=== PATIENT | male | born 1970 | race Caucasian/White ===

== ENCOUNTER 2019-05-29 18:38 | Emergency (ER) | payer OTHER, SELFPAY ==
--- NOTE | ~2019-05-29 | XR_ITS ---
EXAMINATION: XR chest 2V DATE: 05/29/2019 19:48 INDICATION: Shortness of breath TECHNIQUE: PA and lateral views of the chest were obtained. COMPARISON: None FINDINGS: The lungs are clear with no focal airspace opacities, pulmonary edema, pleural effusion or pneumothor ax. The cardiomediastinal silhouette is normal. Visualized bones and soft tissues are unremarkable. IMPRESSION: 1. No acute cardiopulmonary disease. Reviewed, dictated and finalized at location A. CAL RESEARCH ASSISTANT
[2019-05-29 18:45] VITALS: BP 142/89; PULSE 92; RESP 24; TEMP 38.6; O2SAT 95
--- NOTE | 2019-05-29 18:45 | ECG_ITS ---
Measurements Intervals [place] Rate: 86 P: 48 CO: 143 QRS: 18 QRSD: 90 T: 53 QT: 322 QTc: 385 Interpretive Statements SINUS RHYTHM BASELINE ARTIFACT- I, II, III, AVR, AVL, AVF, V1-V3 BORDERLINE ECG Electronically Signed On 05-30-2019 7:56:10 RESILIENT TILE INSTALLER by Mingo Hoang D.O.
[2019-05-29] MEDS: ASPIRIN 81 MG CHEWABLE TABLET 324 MG PO (18:58)
[2019-05-29 19:05] LABS: Basophils Absolute Auto 0.01 K/mm3 (0.00-0.10); Basophils Percent Auto 0.2 % (0.0-1.0); Eosinophils Absolute Auto 0.02 K/mm3 (0.02-0.50); Eosinophils Percent Auto 0.4 % (1.0-6.0); Hematocrit 39.6 % (40.0-54.0); Hemoglobin 12.8 g/dL (14.0-18.0); Immature Granulocyte Absolute 0.02 K/mm3 (0.00-0.00); Immature Granulocyte Percent A 0.4 % (0.0-0.0); Lymphocytes Percent Auto 10.9 % (18.0-42.0); Mean Corpuscular HGB Conc 32.3 g/dL (32.0-36.0); Mean Corpuscular Volume 86.7 fL (78.0-102.0); Mean Platelet Volume 9.8 fl (8.7-11.0); Monocytes Absolute Auto 0.64 K/mm3 (0.10-0.90); Monocytes Percent Auto 13.9 % (2.0-11.0); Neutrophils Absolute Auto 3.4 K/mm3 (1.7-7.2); Neutrophils Percent Auto 74.2 % (50.0-70.0); Platelet Count Result 204 K/mm3 (150-420); Red Blood Count 4.57 M/mm3 (4.70-6.10); Red Cell Distribution Width 12.8 % (11.6-14.4); White Blood Count 4.6 K/mm3 (4.8-10.8)
--- NOTE | 2019-05-29 19:11 | ED.GENADULT ---
HPI - General Adult General Chief complaint: Chest Pain Stated complaint: chest pains Source: patient Mode of arrival: ambulatory Limitations: no limitations History of Present Illness HPI narrative: Zeyad is a 48-year-old man that presented emergency department chest pain. He has had chest pain for over day to get worse about 5 minutes before coming in. It is a squeezing pain in his chest that radiates to his arms. It is associated with nausea, a couple episodes of nonbilious nonbloody vomiting, near-syncope, shortness of breath, and diaphoresis, as well as body aches and fever. He denies any tobacco or illicit drug use. He denies any family history of cardiac disease at an early age. MD complaint: Chest pain Related Data Home Medications Medication Instructions Recorded Confirmed methylphenidate HCl [Concerta] 36 mg PO DAILY 05/29/19 05/29/19 paroxetine HCl 40 mg PO DAILY 05/29/19 05/29/19 Allergies Allergy/AdvReac Type Severity Reaction Status Date / Time potassium Allergy Difficulty Verified 05/29/19 18:44 Swallowing Review of Systems Constitutional: Constitutional: Reports chills, Reports fatigue, Reports fever(s) and Reports weakness Eyes: Eyes: Denies change in vision Cardiovascular: Cardiovascular: Reports chest pain, Denies rapid heart rate and Reports radiating jaw, neck or arm pain Respiratory: Comments: admits cough and shortness of breath Gastrointestinal: Gastrointestinal: Denies diarrhea, Reports nausea and Reports vomiting Musculoskeletal: Musculoskeletal: Reports myalgias Neurologic: Comments: cool clammy skin Psychiatric: Psychiatric: Reports no additional psychiatric complaints Endocrine: Endocrine: Reports no additional endocrine complaints Hematologic/Lymphatic: Hematologic/Lymphatic: Reports no additional hematologic/lymphatic complaints Allergic/Immunologic: Allergic/Immunologic: Reports no additional allergic/immunologic complaints [facility] Family History Family History (Updated 01/01/17 @ 14:20 by DOCTOR UNKNOWN) Father Family history of lymphoma Mother Family history of malignant neoplasm of breast in first degree relative Asthma Other Diabetes mellitus Family history of allergic disorder Family history of malignant neoplasm Social History Social History Smoking status: Former smoker Alcohol intake: never Exam Const: Nutritional Appearance: obese Other: Adult man in mild distress with no signs of altered mental status or confusion HENMT: Ears: external ears normal Other: normocephalic, atraumatic, moist mucous membranes Eyes: Conjunctivae: conjunctivae normal Pupils: Equal, round and reactive pupils present Neck: Neck: normal visual inspection Chest: Chest palpation & inspection: normal inspection of the chest Resp: Effort & Inspection: normal respiratory effort and tachypneic Auscultation: clear to auscultation bilaterally Other: mildly increased work of breathing Cardio: Rate: regular rate Rhythm: regular rhythm Other: mild tachycardia without murmur GI: Other: soft, nontender, no guarding Back/Spine/Pelvis: Back: no CVA tenderness Skin: Other: skin was warm to the touch and sweaty Neuro: General: patient oriented x3, moves all extremities and CN's II-XI intact bilaterally Extrem: General: normal to inspection Psych: Mental Status: mental status grossly normal Course Course Emergency Course: Zeyad was seen and evaluated. And EKG within medially which showed no ST elevation or depression. CBC BMP chest x-ray troponin and BNP ordered as his symptoms were concerning for cardiac origin. However as he also had fevers, chills and body aches and weakness fluids done which came back positive. The remainder of the labs were unremarkable for cardiac origin. Given that he had a heart score of 3 for a moderately suspicious story and risk factor of obesity and is age troponins and EKG repeated 3 hours. As
[2019-05-29 19:20] LABS: Prothrombin Time 10.7 Seconds (9.64-11.0)
[2019-05-29 19:26] LABS: Alanine Aminotransferase 35 U/L (16-63); Albumin Level 3.5 g/dL (3.4-5.0); Alkaline Phosphatase 97 U/L (46-116); Anion Gap 15.6 mmol/L (7-16); Aspartate Amino Transferase 30 U/L (15-37); Bilirubin,Total 0.2 mg/dL (0.00-1.00); Blood Urea Nitrogen 11 mg/dL (7-18); Carbon Dioxide 24 mmol/L (21-32); Chloride 101 mmol/L (98-108); Estimated Glomerular Filt Rate > 60; Glucose 99 mg/dL (70-99); Osmolality Calculated 283 mOsm/kg (285-295); Potassium 3.6 mmol/L (3.5-5.1); Sodium 137 mmol/L (136-145); Total Protein 7.3 g/dL (6.4-8.2)
[2019-05-29 19:27] LABS: Troponin I < 0.02 ng/mL (0.00-0.056)
[2019-05-29 19:36] LABS: BNP 14.3 pg/mL (0-100)
[2019-05-29 19:39] LABS: Influenza Control Valid (Valid)
[2019-05-29] MEDS: SODIUM CHLORIDE 0.9% IV 500 ML 999 ML IV CONT (20:08)
[2019-05-29 20:09] VITALS: BP 150/82; PULSE 84; O2SAT 95
[2019-05-29 20:11] LABS: Add Urine Microscopic? YES; Appearance Urine Clear (Clear); Bilirubin Urine Negative (Negative); Blood Urine 1+ (Negative); Color Urine Yellow (Yellow); Glucose Urine UA Negative (Negative); Ketones Urine Negative (Negative); Leukocyte Esterase Ur Negative LEU/UL (Negative); Nitrate Urine Negative (Negative); Protein Urine Negative (Negative); Specific Grav Ur 1.015 (1.010-1.020); Urobilinogen Urine 0.2 mg/dL (0.2-1.0)
[2019-05-29 20:17] LABS: Bacteria Urine None seen /hpf; RBC Urine 0-2 /hpf (0-2); WBC Urine 0-3 /hpf (0-3)
[2019-05-29] MEDS: OSELTAMIVIR PHOSPHATE 75 MG CAP (20:42)
[2019-05-29] MEDS: ACETAMINOPHEN 500 MG TABLET 1000 MG PO (20:42)
[2019-05-29 21:35] LABS: Troponin I < 0.02 ng/mL (0.00-0.056)
--- NOTE | 2019-05-29 21:44 | ECG_ITS ---
Measurements Intervals [place] Rate: 72 P: 46 CO: 154 QRS: 8 QRSD: 92 T: 53 QT: 367 QTc: 402 Interpretive Statements SINUS RHYTHM BASELINE ARTIFACT- II, III, AVR, AVL, AVF, V1-V6 NORMAL ECG Electronically Signed On 05-30-2019 7:55:33 A CLASS LINEMAN by Mingo Hoang D.O.
[2019-05-29 22:08] VITALS: TEMP 37.8
== END 2019-05-29 22:09 | disposition home or self-care (01) ==
PROVIDERS: Emergency Provider Family Medicine; PCP Family Medicine
DX: R07.9 Chest pain, unspecified (principal); J11.1 Influenza due to unidentified influenza virus with other respiratory manifestations
CPT/HCPCS: 36415; 71046; 80053; 81001; 83880; 84484; 85025; 85610; 87081; 87804; 87880; 93005; 96360; 99283; 99284; A9270; J7040

== ENCOUNTER 2023-01-13 15:25 | Emergency (ER) | payer BC, SELFPAY ==
[2023-01-13 15:30] VITALS: BP 146/98; PULSE 86; RESP 18; TEMP 37.1; O2SAT 95
[2023-01-13 15:38] VITALS: BP 146/98; PULSE 86; RESP 18; TEMP 37.1; O2SAT 95
--- NOTE | 2023-01-13 15:40 | ED.GENADULT ---
HPI - General Adult General Chief complaint: Extremity Problem,Nontraumatic Stated complaint: ring stuck on finger Time Seen by Provider: 01/13/23 15:27 History of Present Illness HPI narrative: 52-year-old male presenting with ring stuck on his left ring finger. The patient states he has been experiencing intermittent swelling to his left ring finger for numerous years. He states the finger was swollen this morning and he wished to take the ring off with a ring would not come off. He presents with concerns about inability to remove his ring. Related Data Home Medications Medication Instructions Recorded Confirmed methylphenidate HCl 36 mg 36 mg PO DAILY 05/29/19 01/13/23 tablet,extended release 24 hr (Concerta) paroxetine HCl 40 mg tablet 40 mg PO DAILY 05/29/19 01/13/23 Allergies Allergy/AdvReac Type Severity Reaction Status Date / Time amoxicillin Allergy Unknown Verified 01/13/23 15:36 potassium Allergy Difficulty Verified 01/13/23 15:36 Swallowing PMFSH Family History Family History (Updated 01/01/17 @ 14:20 by DOCTOR UNKNOWN) Father Family history of lymphoma Mother Family history of malignant neoplasm of breast in first degree relative Asthma Other Diabetes mellitus Family history of allergic disorder Family history of malignant neoplasm Social History Social History Smoking status: Former smoker Alcohol intake: never Exam Narrative: Swelling noted to the left ring finger. Mildly erythematous. Neurovascularly intact. All other systems otherwise unremarkable and negative. Course Vital Signs Vital signs: Vital Signs Temperature 37.1 C 01/13/23 15:30 Pulse Rate 86 01/13/23 15:30 Respiratory Rate 18 01/13/23 15:30 Blood Pressure 146/98 H 01/13/23 15:30 Pulse Oximetry 95 01/13/23 15:30 Oxygen Delivery Room Air 01/13/23 15:30 Temperature 37.1 C 01/13/23 15:38 Pulse Rate 86 01/13/23 15:38 Respiratory Rate 18 01/13/23 15:38 Blood Pressure 146/98 H 01/13/23 15:38 Pulse Oximetry 95 01/13/23 15:38 Oxygen Delivery Room Air 01/13/23 15:38 Medical Decision Making MDM Narrative Medical decision making narrative: Could be gout versus arthritis causing this swelling to the finger. Patient reports distant trauma to the finger that occurred approximately 20 or 30 years ago. No new trauma since. Will treat with NSAIDs. Will have patient follow-up with ortho. Patient appears well. He is nontoxic appearing. No red flag symptomatology. He feels safe to proceed outpatient management. Vital Signs Vital Signs: Vital Signs Temperature 37.1 C 01/13/23 15:30 Pulse Rate 86 01/13/23 15:30 Respiratory Rate 18 01/13/23 15:30 Blood Pressure 146/98 H 01/13/23 15:30 Pulse Oximetry 95 01/13/23 15:30 Oxygen Delivery Room Air 01/13/23 15:30 Temperature 37.1 C 01/13/23 15:38 Pulse Rate 86 01/13/23 15:38 Respiratory Rate 18 01/13/23 15:38 Blood Pressure 146/98 H 01/13/23 15:38 Pulse Oximetry 95 01/13/23 15:38 Oxygen Delivery Room Air 01/13/23 15:38 Discharge Plan Discharge Clinical Impression: Finger pain, left Patient Disposition: Home, Self-Care Condition: Stable Instructions: Gout (ED), Arthritis (ED) Prescriptions: New ketorolac 10 mg tablet 10 mg PO Q6H PRN (Reason: pain) 5 Days Qty: 10 0RF No Action paroxetine HCl 40 mg tablet 40 mg PO DAILY methylphenidate HCl [Concerta] 36 mg tablet extended release 24hr 36 mg PO DAILY Follow-up/Referrals: Jose Suggs MD [Primary Care Provider] - Time of Disposition: 15:44
[2023-01-13 16:01] VITALS: BP 146/98; PULSE 86; RESP 18; TEMP 37.1; O2SAT 95
== END 2023-01-13 16:01 | disposition home or self-care (01) ==
LOC: CHSED 15:50
PROVIDERS: Emergency Provider Emergency Medicine; PCP Family Medicine
DX: M79.645 Pain in left finger(s) (principal); Z79.899 Other long term (current) drug therapy; Z87.891 Personal history of nicotine dependence
CPT/HCPCS: 99283

== ENCOUNTER 2024-10-13 08:45 | Outpatient (CLI) | payer BC, SELFPAY ==
[2024-10-13 09:30] LABS: Basophils Absolute Auto 0.1 K/mm3 (0.0-0.1); Basophils Percent Auto 0.9 % (0.2-1.2); Eosinophils Absolute Auto 0.1 K/mm3 (0-0.3); Eosinophils Percent Auto 1.6 % (0-4.4); Hematocrit 41.7 % (42.0-52.0); Hemoglobin 13.1 g/dL (14.0-18.0); Immature Granulocyte Absolute 0.02 K/mm3 (0.00-0.031); Immature Granulocyte Percent A 0.3 % (0-0.5); Lymphocytes Absolute Auto 1.52 K/mm3 (0.9-3.2); Lymphocytes Percent Auto 21.7 % (18.3-44.2); Mean Corpuscular HGB Conc 31.4 g/dl (32-36); Mean Corpuscular Hemoglobin 28.7 pg (26-34); Mean Corpuscular Volume 91.4 fl (80-100); Mean Platelet Volume 9.5 fl (7.4-10.4); Monocytes Absolute Auto 0.7 K/mm3 (0.1-0.6); Monocytes Percent Auto 9.3 % (2.6-8.5); Neutrophils Absolute Auto 4.7 K/mm3 (1.3-6.7); Neutrophils Percent Auto 66.2 % (45.5-73.1); Platelet Count Result 271 k/mm3 (150-375); Red Blood Count 4.56 M/mm3 (4.6-6.20); Red Cell Distribution Width 11.8 % (11.5-14.5)
[2024-10-13 09:42] LABS: Alanine Aminotransferase 32 U/L (6-50); Albumin Level 3.9 g/dL (3.5-5.1); Alkaline Phosphatase 76 U/L (38-126); Anion Gap 8 mmol/L (4-12); Aspartate Amino Transferase 32 U/L (17-59); Bilirubin,Total 0.3 mg/dL (0.2-1.3); Blood Urea Nitrogen 20 mg/dL (9-20); Calcium 9.1 mg/dL (8.4-10.2); Carbon Dioxide 26 mmol/L (22-30); Chloride 106 mmol/L (98-107); Cholesterol 178 mg/dL (0-200); Estimated Glomerular Filt Rate > 60; Glucose 100 mg/dL (65-110); HDL Direct 42 mg/dL; Potassium 4.4 mmol/L (3.4-5.0); Sodium 140 mmol/L (137-145); Triglycerides 100 mg/dL (<150)
[2024-10-13 09:53] LABS: LDL Cholesterol Direct 105 mg/dL
[2024-10-13 10:12] LABS: Prostate Specific Antigen 0.6 ng/mL (< OR = 4.0)
== END 2024-10-13 08:46 | disposition home or self-care (01) ==
PROVIDERS: PCP Family Medicine; Visit Provider Student in an Organized Health Care Education/Training Program
DX: Z12.5 Encounter for screening for malignant neoplasm of prostate (principal); E66.9 Obesity, unspecified
CPT/HCPCS: 36415; 80053; 80061; 84153; 85025; G0103

== ENCOUNTER 2025-01-04 00:19 | Day surgery (SDC) | payer BC, SELFPAY ==
[2024-12-21 09:19] VITALS: BMI 38.4
--- OUTSIDE RECORDS SUMMARY | 2025-01-04 00:22 | XMS_ITS | Clinical Summary ---
Author Organization [facility] Address [address] [place] [address] Care Team Providers Care Import/Export Analyst Name Role Phone Unavailable Primary Care Provider Unavailabl e Social History Tobacco Use Types Packs/Day Years Used Date Smoking Tobacco: Never Assessed Sex and Gender Information Value Date Recorded Sex Assigned at Not on file Legal Sex Male 6:01 PM CDT Gender Identity Not on file Sexual Orientation Not on file Plan of Treatment Health Maintenance Due Date Last Done Comments Colorectal Cancer Screening Colonoscopy (10 Years) 1968 Annual Physical 12/18/1971 Hepatitis C 1986 DTaP, Tdap and Td Vaccines ( 1 - Tdap) 12/18/1987 Hepatitis B Vaccines (1 of 3 - 19+ 3-dose series) 12/18/1987 Pneumococcal Vaccine: 50+ Ye ars (1 of 1 - PCV) 2018 Zoster Vaccines (1 of 2) 2018 COVID-19 Vaccine (2023-2 5 season) 2024 Meningococcal B Vaccine Aged Out No l onger eligible based on patient's age to complete this topic Meningococcal Vaccine Aged Out No devon marzena eligible based on patient's age to complete this topic RSV Immunizations Under 20 Months Aged Out No longer eligible based on patient's age to complete this topic
[2025-01-04 08:17] VITALS: BP 167/93; PULSE 71; RESP 16; TEMP 36.7; O2SAT 95; BMI 37.2
[2025-01-04] MEDS: LACTATED RINGERS 1,000 ML 150 ML IV CONT (08:24)
--- NOTE | 2025-01-04 08:53 | WPDANESEPPF ---
Anes - Initial Pre Proc Eval Procedure: Operation Date: 01/04/25 09:30 Proposed Procedures p Screening Colonoscopy - Dao Yousif DO Date/Time: 01/04/25 08:53 Surgeon: Dao Yousif DO Pre Op Diagnosis: Neoplasm screening Patient Data Age: 54 Gender: M Height: 1.8 m Weight: 121.1 kg Last Vital Signs Temp 98.0 F 01/04/25 08:17 Pulse 71 01/04/25 08:17 Resp 16 01/04/25 08:17 BP 167/93 H 01/04/25 08:17 Pulse Ox 95 01/04/25 08:17 O2 Del Method Room Air 01/04/25 08:17 Allergies Allergy/AdvReac Type Severity Reaction Status Date / Time amoxicillin Allergy Unknown Verified 01/04/25 08:16 potassium Allergy Difficulty Verified 01/04/25 08:16 Swallowing Home Medications ?Medication ?Instructions ?Recorded ?Confirmed ?Type methylphenidate HCl 36 mg 36 mg PO DAILY 05/29/19 01/04/25 History tablet,extended release 24 hr (Concerta) paroxetine HCl 40 mg tablet 40 mg PO DAILY 05/29/19 01/04/25 History loratadine 10 mg tablet (Claritin) 10 mg PO DAILY 10/13/24 12/21/24 History triamcinolone acetonide 0.1 % 1 applic topical BID #80 grams 10/13/24 12/21/24 Rx topical cream Patient hx anesthesia problems: none Family hx anesthesia problems: none Results Review: All pre-operative results and documents have been reviewed as part of the pre-operative evaluation. [facility] Family History Family History Father Family history of lymphoma Mother Family history of malignant neoplasm of breast in first degree relative Asthma Other Diabetes mellitus Family history of allergic disorder Family history of malignant neoplasm Social History Social History Smoking status: Never smoker Alcohol intake: never Substance use: never Substance use type: does not use Other substance usage details: I don't care to put that in my file Living arrangements: with family Spiritual care concerns: No Anes - Eval Final PreProcedure Day of Procedure 01/04/25 08:53 Patient weight: obese Lungs: normal air movement Airway: Mallampati scale class II and special considerations (Missing teeth in the post aspect. ) Neurological: alert and oriented Last oral intake: >/= 8 hours ASA classification: III Emergent: no Anesthetic plan: proceed Anesthesia type and monitoring: general GIVS and standard monitoring Results Review: All pre-operative results and documents have been reviewed as part of the pre-operative evaluation. BMI 37, pt reports minimal activity, states that he can walk short distances, no cp or sob. Informed Consent: The patient's anesthetic plan and its attendant risks and benefits were discussed with the patient/family/POA. Questions were solicited and answers provided to the satisfaction of the patient/family/POA.
--- NOTE | 2025-01-04 09:45 | PM.IMHP ---
H&P: HPI History of Present Illness Date/Time: 01/04/25 09:45 Chief Complaint: screening for colorectal cancer Narrative: this is a 54-year-old man who presents for colonoscopy. He has never had a colonoscopy before. He denies family history of colon cancer. He denies hematochezia or melena. Review of Systems Review of Systems: All systems reviewed & are unremarkable except as noted in HPI and below Constitutional: Constitutional: Denies chills, Denies fever(s), Denies headache(s) and Denies weight loss Eyes: Eyes: Denies change in vision ENT: Denies dizziness, Denies headache(s), Denies neck mass and Denies throat swelling Cardiovascular: Cardiovascular: Denies chest pain, Denies lightheadedness and Denies dyspnea Respiratory: Respiratory: Denies cough, Denies dyspnea and Denies wheezing Gastrointestinal: Gastrointestinal: Denies abdominal pain, Denies change in bowel habits, Denies nausea and Denies vomiting Genitourinary: Genitourinary: Denies hematuria and Denies dysuria Musculoskeletal: Musculoskeletal: Reports as per HPI Integumentary/Breasts: Skin/Breast: Reports as per HPI Neurologic: Denies dizziness and Denies headache(s) Allergic/Immunologic: Allergic/Immunologic: Denies throat swelling and Denies wheezing [facility] Family History Family History Father Family history of lymphoma Mother Family history of malignant neoplasm of breast in first degree relative Asthma Other Diabetes mellitus Family history of allergic disorder Family history of malignant neoplasm Social History Social History Smoking status: Never smoker Alcohol intake: never Substance use: never Substance use type: does not use Other substance usage details: I don't care to put that in my file Living arrangements: with family Spiritual care concerns: No Meds Home Medications and Allergies Home Medications ?Medication ?Instructions ?Recorded ?Confirmed ?Type methylphenidate HCl 36 mg 36 mg PO DAILY 05/29/19 01/04/25 History tablet,extended release 24 hr (Concerta) paroxetine HCl 40 mg tablet 40 mg PO DAILY 05/29/19 01/04/25 History loratadine 10 mg tablet (Claritin) 10 mg PO DAILY 10/13/24 12/21/24 History triamcinolone acetonide 0.1 % 1 applic topical BID #80 grams 10/13/24 12/21/24 Rx topical cream Allergies Allergy/AdvReac Type Severity Reaction Status Date / Time amoxicillin Allergy Unknown Verified 01/04/25 08:16 potassium Allergy Difficulty Verified 01/04/25 08:16 Swallowing Vital Signs Vital Signs - 24 hr 01/04/25 08:17 Temperature 98.0 F Pulse Rate 71 Respiratory Rate 16 Blood Pressure 167/93 H Pulse Oximetry 95 Oxygen Delivery Room Air Exam Const: General: no acute distress and alert Orientation/consciousness: patient oriented x3 HENMT: Head: normocephalic and atraumatic Ears: hearing grossly normal bilaterally Face/Nose/Sinus: Normal nares present Mouth: Yes Normal oral and palatal mucosa present Eyes: Periorbital: periorbital findings normal Sclera: sclerae normal EOM: EOMs intact bilaterally Neck: Neck: normal visual inspection, no lymphadenopathy and trachea midline Chest: Chest palpation & inspection: normal inspection of the chest Resp: Effort & Inspection: normal respiratory effort Auscultation: clear to auscultation bilaterally Cardio: Jugular venous distension: no JVD Rate: regular rate Rhythm: regular rhythm Heart sounds: S1 normal heart sound present and S2 normal heart sound present Peripheral pulses: Peripheral pulses 2+ throughout GI: Inspection: normal to inspection GI Palp: Yes Soft to palpation, No Tenderness to palpation present (GI), No Guarding due to palpation present (GI) and No Rebound tenderness present Percussion: Yes normal to percussion Auscultation: normal bowel sounds : General: Yes no CVA tenderness Back/Spine/Pelvis: Back: no CVA tenderness Neuro: General: patient oriented x3, no focal motor deficits and CN's II-XI intact bilaterally Cognition (Neuro): normal cognition Speech: normal speech Motor exam (neuro): 5/5 motor strength present throughout Extrem: General: capillary refill normal and no clubbing, cyanosis or edema Assessment and Plan Assessment and plan (1) Screening for colorectal cancer: Code(s): Z12.11 - Encounter for screening for malignant neoplasm of colon; Z12.12 - Encounter for screening for malignant neoplasm of rectum Status: Acute Assessment and Plan: I have recommended colonoscopy. I have discussed the procedure, risks, benefits, and alternatives. Questions were answered. Patient is agreeable to proceed.
[2025-01-04 10:12] VITALS: BP 148/99; PULSE 82; RESP 19; O2SAT 94
[2025-01-04 10:22] VITALS: BP 167/88; PULSE 80; RESP 15; O2SAT 95
[2025-01-04 10:32] VITALS: BP 151/75; PULSE 65; RESP 12; O2SAT 97
== END 2025-01-04 10:48 | disposition home or self-care (01) ==
PROVIDERS: PCP Family Medicine; Visit Provider Surgery
PROC: 0DJD8ZZ Inspection of Lower Intestinal Tract, Via Natural or Artificial Opening Endoscopic (ICD-10-PCS; CPT 45378; principal; 2025-01-04 09:30)
DX: Z12.11 Encounter for screening for malignant neoplasm of colon (principal); K57.30 Diverticulosis of large intestine without perforation or abscess without bleeding; E66.9 Obesity, unspecified; Z68.37 Body mass index [BMI] 37.0-37.9, adult; Z80.7 Family history of other malignant neoplasms of lymphoid, hematopoietic and related tissues; Z80.3 Family history of malignant neoplasm of breast
CPT/HCPCS: 45378; J2003; J2704; J7120